=== PATIENT | male | born 1955 | race Caucasian/White ===

== ENCOUNTER 2019-06-30 13:41 | Emergency (ER) | payer BC, OTHER ==
--- NOTE | 2019-06-30 13:43 | ERPHSYRPT ---
- History of Present Illness Time Seen by Provider: 06/30/19 13:43 Source: patient, family Exam Limitations: no limitations Physician History: 63 y/o white male presents with accidental laceration to anterior left knee. occurred [employer]. pt was trimming lawn and cut his knee. tetanus not utd. pt ambulated into ED. Timing/Duration: today Quality: painful (mild) Severity: mild Location: extremities (left ant knee) Possible Causes: other (sharp yard tool) Associated Symptoms: denies symptoms - Review of Systems Constitutional: No Symptoms Eyes: No Symptoms Ears, Nose, & Throat: No Symptoms Respiratory: No Symptoms Cardiac: No Symptoms Abdominal/Gastrointestinal: No Symptoms Genitourinary Symptoms: No Symptoms Musculoskeletal: No Symptoms Skin: Other (laceration left ant knee) Neurological: No Symptoms Psychological: No Symptoms Endocrine: No Symptoms Hematologic/Lymphatic: No Symptoms Immunological/Allergic: No Symptoms All Other Systems: Reviewed and Negative - Past Medical History Pertinent Past Medical History: Yes Neurological History: No Pertinent History ENT History: No Pertinent History Cardiac History: No Pertinent History Respiratory History: No Pertinent History Endocrine Medical History: No Pertinent History Musculoskeletal History: No Pertinent History GI Medical History: No Pertinent History History: No Pertinent History Psycho-Social History: No Pertinent History Male Reproductive Disorders: No Pertinent History - Past Surgical History Neuro Surgical History: No Pertinent History Cardiac: No Pertinent History Respiratory: No Pertinent History Gastrointestinal: No Pertinent History Genitourinary: No Pertinent History Musculoskeletal: No Pertinent History Male Surgical History: No Pertinent History - Physical Exam General Appearance: no apparent distress, alert, anxiety Eye Exam: PERRL/EOMI Ears, Nose, Throat Exam: normal ENT inspection, moist mucous membranes Neck Exam: normal inspection, non-tender, supple, full range of motion Respiratory Exam: airway intact, No chest tenderness, No respiratory distress Gastrointestinal/Abdomen Exam: No tenderness Rectal Exam: not done Back Exam: normal inspection, normal range of motion, No CVA tenderness, No vertebral tenderness Extremity Exam: normal range of motion, pelvis stable, lacerations (left ant knee. jagged 6cm vertically oriented. no fb. clean. left knee with from. 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 see above) Lymphatic Exam: No adenopathy SpO2 Interpretation: normal O2 Delivery: Room Air Procedures - Laceration/Wound Repair Left Anterior Knee Wound Location: Left, upper leg (knee) Wound Length (cm): 6 Wound's Depth, Shape: superficial Wound Explored: no foreign body noted Irrigated: Yes Hibiclens Prep: Yes Wound Repaired With: [place] (12) Number of Sutures: 12 Layer Closure?: No Sterile Dressing Applied?: Yes Splint Applied?: No - Course Nursing assessment & vital signs reviewed: Yes Ordered Tests: Medication Summary Discontinued Medications Generic Name Dose Route Start Last Admin Trade Name Freq PRN Reason Stop Dose Admin Bacitracin Zinc 0.9 gm 06/30/19 14:10 Baciguent Packet TP 06/30/19 14:11 STAT ONE Diphtheria/Tetanus/Acell Pertussis 0.5 ml 06/30/19 14:10 Adacel Vial IM 06/30/19 14:11 .ONCE ONE - Progress Progress: improved Counseled pt/family regarding: diagnosis, need for follow-up - Departure Departure Disposition: Home Clinical Impression: Laceration of left knee Condition: Stable Critical Care Time: No Additional Instructions: keep clean and dry. after 24 hours, remove dressing and wash daily. after each washing, apply antibiotic ointment and cover with bandage. return to ED for wound evaluation and staple removal in 8 to 10 days. return sooner if questions or concerns about wound.
[2019-06-30] MEDS ORDERED: BACIGUENT PACKET TP ONE (14:10)
[2019-06-30] MEDS ORDERED: Adacel Vial IM ONE ×2 (14:10→14:11)
[2019-06-30 14:37] VITALS: BP 122/72; PULSE 107; O2SAT 96
== END 2019-06-30 14:45 | disposition home or self-care (01) ==
LOC: ED 13:41
DX: S81.012A Laceration without foreign body, left knee, initial encounter (principal); W26.8XXA Contact with other sharp object(s), not elsewhere classified, initial encounter; Y93.H2 Activity, gardening and landscaping; Y92.096 Garden or yard of other non-institutional residence as the place of occurrence of the external cause
CPT/HCPCS: 12002; 90471; 90715; 99283; A9270-GY

== ENCOUNTER 2023-02-08 21:16 | Emergency (ER) | payer MEDICARE ==
--- NOTE | 2023-02-08 21:44 | ERPHSYRPT ---
- History of Present Illness Time Seen by Provider: 02/08/23 21:44 Source: patient Exam Limitations: no limitations Patient Subjective Stated Complaint: pt had a fall about 3 hrs ago, pt fell down 6 or 7 carpeted steps indoors, denies blood thinners Triage Nursing Assessment: pt ambulatory to bed by self with no difficulty, pt alert and oriented x3, skin pwd, pt had a fall around 1830 down 6 or 7 carpeted steps after tripping over a baby gate, pt denies any blood thinners, pt denies LOC, unknown if he hit his head, pt c/o mostly bilateral hip pain, tailbone pain, slight headache, and overall soreness. Physician History: Pt c/o mechanical fall. Tripped and lost balance, fell down around 6 stairs hitting his head and left side Denies gait or balance impairment. No muscle weakness. No peripheral neuropathy. Denies any dizziness or lightheadedness. He reports SAINI and b/l hip pain No focal weakness, speech change Occurred: just prior to arrival Reason for Fall: tripped Injuries/Pain Location: head, pelvis Loss of Consciousness: no loss of consciousness Quality: dullness Severity of Pain-Max: mild Severity of Pain-Current: mild Associated Symptoms (Fall): headache, No abdominal pain, No back pain, No confusion, No chest pain, No dizziness, No extremity injury, No lightheadedness, No muscle spasms, No nausea, No neck pain, No ringing in ears, No shortness of breath, No slurred speech, No vomiting, No vision changes Allergies/Adverse Reactions: No Known Drug Allergies Allergy (Verified 06/30/19 14:19) Home Medications: Allopurinol 100 mg [Zyloprim 100 mg] 100 mg PO BID 02/08/23 [History] Lorazepam [Ativan] 1 mg PO TID PRN 02/08/23 [History] Olmesartan Medoxomil [Benicar] 20 mg PO DAILY 02/08/23 [History] Omeprazole 40 mg PO DAILY 02/08/23 [History] Sertraline HCl 50 mg [Zoloft 50 mg Tablet] 25 mg PO DAILY 02/08/23 [History] Testosterone Cypionate 200 mg IM 02/08/23 [History] Hx Tetanus, Diphtheria Vaccination/Date Given: (unk) Hx Influenza Vaccination/Date Given: Yes Hx Pneumococcal Vaccination/Date Given: Yes Immunizations Up to Date: Yes Travel Risk - International Travel Have you traveled outside of the country in past 3 weeks: No - Coronavirus Screening Are you exhibiting any of the following symptoms?: No Close contact with a COVID-19 positive Pt in past 14-21 Days: No - Vaccine Status Have you recieved a Covid-19 vaccination: Yes Product Assembler: Moderna - Vaccination Dates Date of 2cond Vaccination (if applicable): unk - Review of Systems Constitutional: No Symptoms Eyes: No Symptoms Ears, Nose, & Throat: No Symptoms Respiratory: No Symptoms Cardiac: No Symptoms Abdominal/Gastrointestinal: No Symptoms Genitourinary Symptoms: No Symptoms Musculoskeletal: Fall, Other (b/l hip and pelvis pain) Skin: No Symptoms Neurological: Headache, No Dizziness, No Focal Weakness, No Gait Changes, No Sensory Changes, No Speech Changes Psychological: No Symptoms Endocrine: No Symptoms Hematologic/Lymphatic: No Symptoms Immunological/Allergic: No Symptoms - Past Medical History Pertinent Past Medical History: Yes Neurological History: No Pertinent History ENT History: No Pertinent History Cardiac History: No Pertinent History Respiratory History: No Pertinent History Endocrine Medical History: No Pertinent History Musculoskeletal History: No Pertinent History GI Medical History: No Pertinent History History: No Pertinent History Psycho-Social History: No Pertinent History Male Reproductive Disorders: No Pertinent History Other Medical History: pituatary tube removed and now receives hormones for entire system - Past Surgical History Past Surgical History: Yes Neuro Surgical History: No Pertinent History Cardiac: No Pertinent History Respiratory: No Pertinent History Gastrointestinal: No Pertinent History Genitourinary: No Pertinent History Musculoskeletal: No Pertinent History Male Surgical History: No Pertinent History Other Surgical History: pituatary tube removed. surgery to right thumb - Social History Smoking Status: Never smoker Exposure to second hand smoke: No Drug Use: none Patient Lives Alone: Yes - Nursing Vital Signs Nursing Vital Signs: Initial Vital Signs Temperature 98.2 F 02/08/23 21:31 Pulse Rate 89 02/08/23 21:31 Respiratory Rate 18 02/08/23 21:31 Blood Pressure 177/98 02/08/23 21:31 O2 Sat by Pulse Oximetry 95 02/08/23 21:31 Pain Scale Pain Intensity 3 - Edgardo Coma Score Best Eye Response (Edgardo): (4) open spontaneously Best Verbal Response (Edgardo): (5) oriented Best Motor Response ([place]): (6) obeys commands [place] Total: 15 - Physical Exam General Appearance: no apparent distress, alert Head Injury: no evidence of injury Eye Exam: PERRL/EOMI, eyes nml inspection ENT Exam: airway nml, nml ext.inspection Neck Exam: supple, trachea midline, full range of motion, normal alignment, normal inspection Respiratory/Chest Exam: normal breath sounds, No respiratory distress Cardiovascular Exam: normal heart sounds, regular rate/rhythm Gastrointestinal Exam: soft, normal bowel sounds, No tenderness, No distention Back Exam: normal inspection, normal range of motion, No vertebral tenderness Extremity Exam: normal inspection, normal range of motion, capillary refill <3 sec, pelvis stable, hip tenderness (b/l), No contusions, No deformities, No lacerations, No bony point tenderness, No evidence of injury, No pain with movement, No swelling Neurologic Exam: alert, oriented x 3, cooperative, 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, normal mood/affect, nml cerebellar function, sensation nml Skin Exam: normal color, warm, dry, abrasion (right elbow), ecchymosis (right posterior hip) SpO2 Interpretation: normal SpO2: 95 O2 Delivery: Room Air - Course Nursing assessment & vital signs reviewed: Yes - Radiology Exams Pelvis X-ray Interpretation: Interpreted by me, No Fracture - CT Exams Head CT Interpretation: Negative, Tele-radiologist Report Ordered Tests: Active Orders 24 hr Category Date Time Status HEAD WITHOUT CONTRAST [CT] Stat Exams 02/08/23 22:30 Completed PELVIS (1 OR 2 VIEWS) Stat Exams 02/08/23 22:31 Taken Medication Summary Discontinued Medications Generic Name Dose Route Start Last Admin Trade Name Winter PRN Reason Stop Dose Admin Acetaminophen 650 mg 02/08/23 22:57 02/08/23 22:59 Acetaminophen 325 Mg Tablet PO 02/08/23 22:58 650 mg STAT STA Administration Acetaminophen Confirm 02/08/23 22:59 Acetaminophen 325 Mg Tablet Administered 02/08/23 23:00 Dose 650 mg .ROUTE .STK-MED ONE - Progress Progress: improved Counseled pt/family regarding: rad results Medical Desision Making - Diagnostic Testing Diagnostic test were ordered, analyzed, and reviewed by me: Yes Radiological Interpretation: Interpreted by me, Reviewed by me, Teleradiologist Report - Risk of complications Low Risk: Low risk of morbidity from additional dx testing or treatment - Departure Departure Disposition: Home Clinical Impression: Fall (on) (from) other stairs and steps, initial encounter Condition: Stable Critical Care Time: No Referrals: SREEDHAR HARP MD [Primary Care Provider] - Follow up/PCP as directed Instructions: Preventing Falls in Older Adults
[2023-02-08] MEDS ORDERED: TYLENOL 325 MG PO STA (22:57)
[2023-02-08] MEDS ORDERED: TYLENOL 325 MG ONE (22:59)
[2023-02-08 23:07] VITALS: BP 176/97
--- NOTE | 2023-02-08 23:30 | XRAY ---
CLINICAL HISTORY:fall, hit head, headache COMPARISON:None; TECHNIQUES:Axial non-contrast CT scan of the brain was performed from the skull base to the high parietal region. CTDI 53.92 mGy, DLP 1016.25 mGy*cm; FINDINGS: The visualized brain parenchyma shows a normal appearance. No focal parenchymal abnormalities are demonstrated. Trivedi-white matter differentiation is maintained. No midline shifts or deformity. No intracerebral or extra axial hematoma. Normal size and configuration of the cerebral ventricles. Normal CT appearance of the posterior fossa structures namely the cerebellar hemispheres, brainstem and cerebellar peduncles. The IACs are unremarkable. The cerebellum-pontine angles are clear. The pituitary gland, the pineal gland, the optic chiasm is unremarkable. The osseous structures in the skull base are unremarkable. No definite calvarium fractures. Scanned paranasal sinuses show mucosal thickening, markedly in the sphenoid sinus. IMPRESSION: Unremarkable non-contrast CT for the brain. Electronically Signed by: Carla Camarena MD. (02/08/2023 22:22:21 RELIGIOUS ACTIVITIES DIRECTOR)
[2023-02-09 00:06] VITALS: PULSE 80; O2SAT 98
--- NOTE | 2023-02-09 08:39 | XRAY ---
Indication: Pain following fall. Comparison: None Single AP pelvis demonstrates minimal degenerative joint space narrowing both hips and 1.2 x 2.4 cm right innominate bone island. No other bony, articular, or soft tissue abnormalities.
== END 2023-02-09 00:06 | disposition home or self-care (01) ==
LOC: ED 21:16
DX: S70.01XA Contusion of right hip, initial encounter (principal); S50.311A Abrasion of right elbow, initial encounter; W10.8XXA Fall (on) (from) other stairs and steps, initial encounter; R51.9 Headache, unspecified; Z79.899 Other long term (current) drug therapy
CPT/HCPCS: 70450; 72170; 99283; A9270-GY